=== PATIENT | male | born 1985 | race Caucasian/White ===

== ENCOUNTER 2019-01-12 06:01 | Emergency (ER) | payer SELFPAY ==
[~2019-01-12] VITALS: Ht 165.1 cm; Wt 90.7 kg
--- NOTE | 2019-01-12 06:01 | NUR ---
BIB [facility]. PATIENT REFUESING ASSESSMENT, OR CARE AT THIS TIME. ERMD MADE AWARE
--- NOTE | 2019-01-12 06:04 | NUR ---
DR BAUTISTA AT CHAIRSIDE. PATIENT REFUSING TO BE SEEN.
--- NOTE | 2019-01-12 06:10 | NUR ---
PATIENT REFUESED TO BE ASSESSED BY DOCTOR. NO DISCHARGE PROVIDED. PATIENT ESCORTED OUT IN CUSTODY BY P
== END 2019-01-12 06:10 | disposition left against medical advice (07) ==
LOC: MED 06:01
DX: Z04.1 Encounter for examination and observation following transport accident (principal); Z53.21 Procedure and treatment not carried out due to patient leaving prior to being seen by health care provider; V43.92XA Unspecified car occupant injured in collision with other type car in traffic accident, initial encounter; Y93.89 Activity, other specified; Y92.89 Other specified places as the place of occurrence of the external cause; Y99.8 Other external cause status